=== PATIENT | male | born 1950 | race American Indian/Alaskan Native ===

== ENCOUNTER 2020-06-24 11:28 | Emergency (ER) | payer OTHER, MEDICARE ==
[2020-06-24 11:36] VITALS: BP 160/66
--- NOTE | 2020-06-24 11:43 | Emergency Department Report ---
ED General Adult HPI - General Chief complaint: Medical Clearance Stated complaint: MED REFILL Time Seen by Provider: 06/24/20 11:40 Source: patient Mode of arrival: Ambulatory Limitations: No Limitations - History of Present Illness Initial comments: Patient is a 69-year-old male presents emergency room with complaints of a medication refill. He states that he ran out of his medications 3 days ago. he states he just had a full with his doctor last month and states that his doctor sent in his medications. He states that he sent his medications through the mail. He states that he has called the post office but has still been able to receive his medications states that there are delays secondary to the pandemic and due to the holidays. He states that he just does not feel like himself without his medications. He states he has a mild headache. He denies any chest pain, shortness of breath, vision changes, numbness, weakness, gait disturbance, speech disturbance. He takes atorvastatin, benazepril, omeprazole, amlodipine. He denies any medication allergies. Severity scale (0 -10): 0 - Related Data Home Medications Medication Instructions Recorded Confirmed Last Taken Aspirin [Aspirin BABY CHEW TAB] 81 mg PO QDAY 08/23/15 08/23/15 1 Day Ago ~08/22/15 Benazepril HCl 40 mg PO DAILY 08/23/15 08/23/15 1 Day Ago ~08/22/15 Gabapentin 300 mg PO BID 08/23/15 08/23/15 1 Day Ago ~08/22/15 Oxycodone HCl/Acetaminophen 1 each PO Q6HR PRN 08/23/15 08/23/15 1 Day Ago [Percocet 10/325 mg] ~08/22/15 Previous Rx's Medication Instructions Recorded Last Taken Type AtorvaSTATin [Lipitor] 20 mg PO DAILY 30 Days #30 06/24/20 Unknown Rx Benazepril HCl 40 mg PO DAILY 30 Days #30 tablet 06/24/20 Unknown Rx Omeprazole 20 mg PO DAILY 30 Days #30 06/24/20 Unknown Rx tab. amLODIPine 10 mg PO DAILY 30 Days #30 06/24/20 Unknown Rx Allergies Allergy/AdvReac Type Severity Reaction Status Date / Time No Known Allergies Allergy Unverified 06/10/13 11:08 ED Review of Systems ROS: Stated complaint: MED REFILL Other details as noted in HPI Comment: All other systems reviewed and negative ED Past Medical Hx - Past Medical History Previous Medical History?: Yes Hx Hypertension: Yes (06/24/1987) Hx of Cancer: Yes (prostate) Additional medical history: afib - Surgical History Past Surgical History?: Yes Hx Cholecystectomy: Yes Additional Surgical History: prostate surgery - Social History Smoking Status: Never Smoker - Medications Home Medications: Home Medications Medication Instructions Recorded Confirmed Last Taken Type Aspirin [Aspirin BABY CHEW TAB] 81 mg PO QDAY 08/23/15 08/23/15 1 Day Ago History ~08/22/15 Benazepril HCl 40 mg PO DAILY 08/23/15 08/23/15 1 Day Ago History ~08/22/15 Gabapentin 300 mg PO BID 08/23/15 08/23/15 1 Day Ago History ~08/22/15 Oxycodone HCl/Acetaminophen 1 each PO Q6HR PRN 08/23/15 08/23/15 1 Day Ago History [Percocet 10/325 mg] ~08/22/15 AtorvaSTATin [Lipitor] 20 mg PO DAILY 30 Days #30 06/24/20 Unknown Rx Benazepril HCl 40 mg PO DAILY 30 Days #30 tablet 06/24/20 Unknown Rx Omeprazole 20 mg PO DAILY 30 Days #30 06/24/20 Unknown Rx tab.rap. amLODIPine 10 mg PO DAILY 30 Days #30 06/24/20 Unknown Rx ED Physical Exam - General Limitations: No Limitations General appearance: alert, in no apparent distress - Head Head exam: Present: atraumatic, normocephalic - Eye Eye exam: Present: normal appearance - ENT ENT exam: Present: mucous membranes moist - Respiratory Respiratory exam: Present: normal lung sounds bilaterally. Absent: respiratory distress, wheezes, rales, rhonchi, stridor, chest wall tenderness, accessory muscle use, decreased breath sounds, prolonged expiratory - Cardiovascular Cardiovascular Exam: Present: regular rate, normal rhythm, normal heart sounds. Absent: systolic murmur, diastolic murmur, rubs, gallop - Neurological Exam Neurological exam: Present: alert, oriented X3 - Psychiatric Psychiatric exam: Present: normal affect, normal mood - Skin Skin exam: Present: warm, dry, intact ED Course Vital Signs 06/24/20 11:33 Temperature 97.9 F Pulse Rate 86 Respiratory 20 Rate Blood Pressure 160/66 [Right] O2 Sat by Pulse 96 Oximetry ED Medical Decision Making - Medical Decision Making Patient is a 69-year-old male presents emergency room with complaints of a medication refill. He states that he ran out of his medications 3 days ago. he states he just had a full with his doctor last month and states that his doctor sent in his medications. He states that he sent his medications through the mail. He states that he has called the post office but has still been able to receive his medications states that there are delays secondary to the pandemic and due to the holidays. He states that he just does not feel like himself without his medications. He states he has a mild headache. He denies any chest pain, shortness of breath, vision changes, numbness, weakness, gait disturbance, speech disturbance. He takes atorvastatin, benazepril, omeprazole, amlodipine. He denies any medication allergies. vitals with mildly elevated BP, no clinical signs of HTN urgency/emergency. no abnormality on physicial exam as documented in chart. pt given a refill of his home medications. discussed strict return precautions. advised pt please take medication as prescribed. increase your water intake. eat a low sodium diet. follow up with your primary care doctor. return to the emergency room for any new or worsening symptoms. Critical care attestation.: If time is entered above; I have spent that time in minutes in the direct care of this critically ill patient, excluding procedure time. ED Disposition Clinical Impression: Medication refill, Mild headache Disposition: DC-01 TO HOME OR SELFCARE Is pt being admited?: No Does the pt Need Aspirin: No Condition: Stable Instructions: Hypertension, Adult, Sodm-of-Dvvu, Low-Sodium Eating Plan Additional Instructions: please take medication as prescribed. increase your water intake. eat a low sodium diet. follow up with your primary care doctor. return to the emergency room for any new or worsening symptoms. Prescriptions: amLODIPine 10 mg PO DAILY 30 Days #30 Benazepril HCl 40 mg PO DAILY 30 Days #30 tablet AtorvaSTATin [Lipitor] 20 mg PO DAILY 30 Days #30 Omeprazole 20 mg PO DAILY 30 Days #30 tab.rap. Referrals: your, primary care doctor [Other] - 2-3 Days Time of Disposition: 11:40 Print Language: DUTCH
== END 2020-06-24 12:07 | disposition home or self-care (01) ==
LOC: ED 11:28
DX: R51.9 Headache, unspecified (principal); I10 Essential (primary) hypertension; Z76.0 Encounter for issue of repeat prescription; Z98.890 Other specified postprocedural states; Z79.899 Other long term (current) drug therapy
CPT/HCPCS: 99282

== ENCOUNTER 2020-10-21 11:01 | Emergency (ER) | payer OTHER, MEDICARE ==
--- NOTE | 2020-10-21 11:44 | Event Note ---
ED Screening Note Date of service: 10/21/20 Time: 11:42 ED Screening Note: Pt c/o dizziness x this morning +left sided chest pain Hx of HTN and irregular heart beat No headache This initial assessment/diagnostic orders/clinical plan/treatment(s) is/are subject to change based on patients health status, clinical progression and re- assessment by fellow clinical providers in the ED. Further treatment and workup at subsequent clinical providers discretion. Patient/guardian urged not to elope from the ED as their condition may be serious if not clinically assessed and managed. Initial orders include: labs ekg cxr
[2020-10-21 12:09] LABS: Hematocrit 44.2 % (35.5-45.6); Hemoglobin 14.2 gm/dl (11.8-15.2); Mean Corpuscular HGB Conc 32 % (32-34); Mean Corpuscular Volume 89 fl (84-94); Platelet Count 134 K/mm3 (140-440); Red Blood Count 4.96 M/mm3 (3.65-5.03); Red Cell Distribution Width 13.9 % (13.2-15.2)
--- NOTE | 2020-10-21 12:13 | XRay Report ---
XR chest routine 2V INDICATION / CLINICAL INFORMATION: left sided chest pain COMPARISON: None available. FINDINGS: SUPPORT DEVICES: None. HEART / MEDIASTINUM: No significant abnormality. LUNGS / PLEURA: Lungs are clear. Costophrenic sulci are sharp. No pneumothorax. ADDITIONAL FINDINGS: No significant additional findings. IMPRESSION: 1. No acute findings. Signer Name: Naveen Roa MD Signed: 10/21/2020 12:08 PM Workstation Name: [id number]
[2020-10-21 12:22] LABS: Alanine Aminotransferase 13 units/L (7-56); BUN/Creatinine Ratio 17; Blood Urea Nitrogen 20 mg/dL (9-20); Calcium 8.7 mg/dL (8.4-10.2); Hemolysis Index 30
--- NOTE | 2020-10-21 14:03 | Electrocardiograph Report ---
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
[2020-10-21 14:07] LABS: Chol/HDL Ratio 3.04 %; HDL Cholesterol 47 mg/dL (40-59); LDL Cholesterol,Direct 86 mg/dL (50-130)
[2020-10-21 14:48] LABS: Total Cells Counted 100
[2020-10-21 14:49] LABS: Platelet Estimate Consistent w Auto; RBC Morphology Normal
[2020-10-21 17:09] LABS: Bacteria,Urine 1+ /HPF (Negative); Bilirubin,Urine NEG (Negative); Blood,Urine NEG (Negative); Color,Urine Yellow (Yellow); Mucus,Urine 3+ /HPF; Protein,Urine <15 mg/dL mg/dL (Negative)
--- NOTE | 2020-10-21 18:41 | Emergency Department Report ---
ED Dizziness HPI - General Chief Complaint: Syncope Stated Complaint: BACK PAIN/HEADACHE/ALMOST PASSED OUT Time Seen by Provider: 10/21/20 11:42 Source: patient Mode of arrival: Ambulatory Limitations: No Limitations - History of Present Illness Initial Comments: 70-year-old male presents to ED with episode of dizziness this morning. Patient states he was in a seated position and went to stand and walk to the kitchen when he started feeling dizzy. Patient states this dizziness lasted for approximately 2 hours total. However, he states he was able to drive and walk into the emergency room without any issues. Patient states the dizziness would increase if he would lean his head downward. States he never had any difficulty walking. Patient denies any diaphoresis, headache, chest pain, nausea vomiting, diarrhea, shortness of breath, fever, leg pain or swelling. Patient states he is currently feeling back to normal. MD Complaint: dizziness -: This morning Timing: now resolved Improves With: nothing Worsens With: movement, position Associated Symptoms: denies: ataxia, chest pain, cough, diaphoresis, fever/chills, shortness of breath, syncope - Related Data Home Medications Medication Instructions Recorded Confirmed Last Taken Aspirin [Aspirin BABY CHEW TAB] 81 mg PO QDAY 08/23/15 08/23/15 1 Day Ago ~08/22/15 Benazepril HCl 40 mg PO DAILY 08/23/15 08/23/15 1 Day Ago ~08/22/15 Gabapentin 300 mg PO BID 08/23/15 08/23/15 1 Day Ago ~08/22/15 Oxycodone HCl/Acetaminophen 1 each PO Q6HR PRN 08/23/15 08/23/15 1 Day Ago [Percocet 10/325 mg] ~08/22/15 Previous Rx's Medication Instructions Recorded Last Taken Type AtorvaSTATin [Lipitor] 20 mg PO DAILY 30 Days #30 06/24/20 Unknown Rx Benazepril HCl 40 mg PO DAILY 30 Days #30 tablet 06/24/20 Unknown Rx Omeprazole 20 mg PO DAILY 30 Days #30 06/24/20 Unknown Rx tab. amLODIPine 10 mg PO DAILY 30 Days #30 06/24/20 Unknown Rx Allergies Allergy/AdvReac Type Severity Reaction Status Date / Time No Known Allergies Allergy Unverified 06/10/13 11:08 ED Review of Systems ROS: Stated complaint: BACK PAIN/HEADACHE/ALMOST PASSED OUT Other details as noted in HPI Comment: All other systems reviewed and negative Constitutional: denies: chills, diaphoresis, fever Respiratory: denies: cough, shortness of breath Cardiovascular: denies: chest pain, palpitations Gastrointestinal: denies: abdominal pain, vomiting, diarrhea Neurological: denies: headache, weakness, numbness, abnormal gait ED Past Medical Hx - Past Medical History Hx Hypertension: Yes (06/24/1987) Additional medical history: afib - Surgical History Hx Cholecystectomy: Yes Additional Surgical History: prostate surgery - Social History Smoking Status: Never Smoker - Medications Home Medications: Home Medications Medication Instructions Recorded Confirmed Last Taken Type Aspirin [Aspirin BABY CHEW TAB] 81 mg PO QDAY 08/23/15 08/23/15 1 Day Ago History ~08/22/15 Benazepril HCl 40 mg PO DAILY 08/23/15 08/23/15 1 Day Ago History ~08/22/15 Gabapentin 300 mg PO BID 08/23/15 08/23/15 1 Day Ago History ~08/22/15 Oxycodone HCl/Acetaminophen 1 each PO Q6HR PRN 08/23/15 08/23/15 1 Day Ago History [Percocet 10/325 mg] ~08/22/15 AtorvaSTATin [Lipitor] 20 mg PO DAILY 30 Days #30 06/24/20 Unknown Rx Benazepril HCl 40 mg PO DAILY 30 Days #30 tablet 06/24/20 Unknown Rx Omeprazole 20 mg PO DAILY 30 Days #30 06/24/20 Unknown Rx tab. amLODIPine 10 mg PO DAILY 30 Days #30 06/24/20 Unknown Rx ED Physical Exam - General Limitations: No Limitations General appearance: alert, in no apparent distress - Head Head exam: Present: atraumatic, normocephalic - Eye Eye exam: Present: normal appearance, PERRL, EOMI - ENT ENT exam: Present: mucous membranes moist - Neck Neck exam: Present: normal inspection - Respiratory Respiratory exam: Present: normal lung sounds bilaterally. Absent: respiratory distress - Cardiovascular Cardiovascular Exam: Present: regular rate, normal rhythm - GI/Abdominal GI/Abdominal exam: Present: soft. Absent: distended, tenderness - Extremities Exam Extremities exam: Present: normal inspection - Back Exam Back exam: Present: normal inspection. Absent: tenderness - Neurological Exam Neurological exam: Present: alert, oriented X3, CN II-XII intact. Absent: motor sensory deficit - Psychiatric Psychiatric exam: Present: normal affect, normal mood - Skin Skin exam: Present: warm, dry, intact, normal color ED Course Vital Signs 10/21/20 10/21/20 10/21/20 11:51 18:03 18:15 Temperature 98.4 F Pulse Rate 54 L 83 72 Respiratory 13 16 25 H Rate Blood Pressure 154/99 154/97 O2 Sat by Pulse 95 94 96 Oximetry 10/21/20 10/21/20 10/21/20 18:30 18:43 19:00 Temperature Pulse Rate 73 71 Respiratory 27 H 17 20 Rate Blood Pressure 139/97 157/98 O2 Sat by Pulse 96 97 Oximetry 10/21/20 10/21/20 10/21/20 19:30 20:01 20:30 Temperature Pulse Rate 68 85 79 Respiratory 21 16 19 Rate Blood Pressure 163/88 163/88 156/90 O2 Sat by Pulse 97 93 98 Oximetry - Reevaluation(s) Reevaluation #1: 10/21/20 18:17 It has been brought to my attention by scrap charger that there has been above avera ge amt of slightly elevated troponins that were run this morning. Colleague has also had no normal troponins from this morning. Repeat troponins have been completely normal. ED Medical Decision Making - Lab Data Result diagrams: 10/21/20 11:46 10/21/20 11:46 - EKG Data -: EKG Interpreted by Me EKG shows normal: sinus rhythm, axis, intervals, QRS complexes Rate: normal - EKG Data Interpretation: nonspecific ST-T wave jose - Radiology Data Radiology results: report reviewed, image reviewed - Medical Decision Making 70-year-old male presents to ED with episode of dizziness this morning. Patient states he was in a seated position and went to stand and walk to the kitchen when he started feeling dizzy. Patient states this dizziness lasted for approximately 2 hours total. However, he states he was able to drive and walk into the emergency room without any issues. Patient states the dizziness would increase if he would lean his head downward. States he never had any difficulty walking. Patient denies any diaphoresis, headache, chest pain, nausea vomiting, diarrhea, shortness of breath, fever, leg pain or swelling. Patient states he is currently feeling back to normal. Patient is slightly hypertensive, remainder vitals are unremarkable. EKG shows some nonspecific ST changes. Initial troponin elevated to 0.05, however, throughout the day there had been an above-average number of elevated troponins, from the lab. Patient second and third troponin were completely normal. Remainder of labs are unremarkable. Patient is currently asymptomatic, no neuro deficits on exam. Patient wishes to go home due to the extended nature of his visit, and follow-up with his PCP. Patient does not wish to be admitted. He will be discharged at this time, return precautions given. - Differential Diagnosis Arrhythmia, dehydration, electrolyte abnormality, vertigo Critical care attestation.: If time is entered above; I have spent that time in minutes in the direct care of this critically ill patient, excluding procedure time. ED Disposition Clinical Impression: Postural dizziness with near syncope Disposition: DC-01 TO HOME OR SELFCARE Is pt being admited?: No Condition: Stable Instructions: Near-Syncope, [id number], Dizziness, [id number] Referrals: PRIMARY CARE, [Primary Care Provider] - 3-5 Days Time of Disposition: 20:35
--- NOTE | 2020-10-21 19:27 | Cat Scan Report ---
CT HEAD WITHOUT CONTRAST INDICATION / CLINICAL INFORMATION: DIZZINESS. TECHNIQUE: All CT scans at this location are performed using CT dose reduction for ALARA by means of automated e xposure control. COMPARISON: None available. FINDINGS: HEMORRHAGE: No evidence of intracranial hemorrhage or extra-axial fluid collection. EXTRA-AXIAL SPACES: Cortical sulci, sylvian fissures and basilar cisterns have an unremarkable appear ance. VENTRICULAR SYSTEM: The third and lateral ventricles are of normal size and configuration given the p atient's age of 70 years. CEREBRAL PARENCHYMA: No definite areas of abnormal brain parenchymal attenuation are identified. Ther e is no indication of recent infarction. MIDLINE SHIFT OR HERNIATION: There is no mass effect. CEREBELLUM / BRAINSTEM: Brainstem and cerebellum have an unremarkable appearance. MIDLINE STRUCTURES:No abnormalities of the pituitary gland or pineal region are identified. INTRACRANIAL VESSELS: Slight atherosclerotic plaque is seen along the course the cavernous segments o f both internal carotid arteries extending up into the supraclinoid segments of these vessels. Calcif ied atherosclerotic plaque is also observed along the course of the V4 segments of the vertebral enriqueta milagro. ORBITS: visualized portions of the orbits have an unremarkable appearance. SOFT TISSUES of HEAD: No significant abnormality. CALVARIUM: Evaluation of bone windows reveals no abnormalities. PARANASAL SINUSES / MASTOID AIR CELLS: Visualized portions of the paranasal sinuses are free from inf lammatory mucosal disease. Mastoid air cells are normally pneumatized. IMPRESSION: 1. Head CT without contrast is within normal limits for the patient's age of 70 years. Signer Name: Sylvester Johnson MD Signed: 10/21/2020 7:23 PM Workstation Name: [id number]
[2020-10-21 20:52] VITALS: BP 156/90
== END 2020-10-21 20:51 | disposition home or self-care (01) ==
LOC: ED 11:01
DX: R55 Syncope and collapse (principal); I10 Essential (primary) hypertension; Z98.890 Other specified postprocedural states; Z90.49 Acquired absence of other specified parts of digestive tract; Z79.899 Other long term (current) drug therapy
CPT/HCPCS: 36415; 70450; 71046; 80053; 80061; 81001; 84484; 85007; 85025; 93005